=== PATIENT | female | born 1980 | race Caucasian/White ===

== ENCOUNTER 2024-12-29 11:14 | Outpatient (REF) | payer BC, SELFPAY ==
--- OUTSIDE RECORDS SUMMARY | 2024-05-04 09:30 | XMS_ITS ---
Author Organization [facility] Address [address] [address] Care Team Providers Care Head Of Insight Name Role Phone MIRACLE HASKINSYLA Unavailable [phone] REASON FOR VISIT NEW PATIENT..No PCP...left foot damaged toenail, left foot is swollen and from her vergara to her toesshe gets a numb, tingly sensation Encounters Encounter Location Date Provider Diagnosis [facility] [address] [facility] [address] [place] [address] 05/04/2024 TAMMY HASKINS Plan Of Treatment Next Appt Details Provider Name:TAMMY HASKINS, 01/23/2025 10:00:00 AM, [address] [address], [place], [address], Progress Notes * Ashley MELENDEZDOB: 0 (44 yo F)Acc No.[id number]:05/04/2024 Patient: Ashley RODRIGUES Provider: Tessa Slater DPAntolin :1980 A ge:43 Y S ex:Female Date:05/04/2024 Phone: Address:[address] [place] [phone] Subjective: * Chief Complaints: * 1 . NEW PATIENT..No PCP...left foot damaged toenail, left foot is swollen and from her vergara to her toes she gets a numb, tingly sensation. * Medical History: Objective: * Vitals: Assessment: Plan: * Treatment: * Billing Information: * Visit Code: * Procedure Codes: * Electronic signature of FREDDY HASKINS D.P.M. on 12/29/2024 at 01:39 PM EST Sign off status: Pending * Provider: Tessa Slater DPM Date: 0 05/04/2024 Generated for Shaina abreu/Doron/Kathrin on: 1 02/29/2024 01:39 PM EST
--- OUTSIDE RECORDS SUMMARY | 2024-10-06 09:45 | XMS_ITS ---
Author Organization [facility] Address [address] [address] Care Team Providers Care School Fundraising Director Name Role Phone TAMMY HASKINS Unavailable [phone] Allergies Allergen (clinical drug ingredient) Drug/Non Drug Allergy documented on EMR Reaction Allergy Type Onset Date Status fruits (uncoded) Unknown Allergy Act javi REASON FOR VISIT Previous THONE patient, c/o onset swelling and b/l toenail fungus. Medications Medication SIG (Take, Route, Frequency, Duration) Notes Start Date End Date Status Cholecalciferol Acti ve Cyanocobalamin Activ e Levonorgestrel 20 MCG/DAY as directed Intrauterine Active Cipro 500 MG 1 tablet Orally ever y 12 hrs Active Encounters Encounter Location Date Provider Diagnosis [facility] [address] [address] 10/06/2024 TAMMY HASKINS Plan Of Treatment Next Appt Details Provider Name:TAMMY HASKINS, 01/23/2025 10:00:00 AM, [address], [address], Progress Notes * Ashley MELENDEZDOB: 0 (44 yo F)Acc No.[id number]:10/06/2024 Patient: Ashley RODRIGUES Provider: Tessa Slater DPM :1980 A ge:44 Y S ex:Female Date:10/06/2024 Phone: Address:[address] [place] [phone] Subjective: * Chief Complaints: * 1 . Previous THONE patient, c/o onset swelling and b/l toenail fungus.. * Medical History: * Social History: t obacc: never alcohol: once a week. * Medications: T aking Levonorgestrel 20 MCG/DAY Intrauterine Device as directed Intrauterine , Taking Cholecalciferol , Taking Cyanocobalamin , Taking Cipro 500 MG Tablet 1 tablet Orally every 12 hrs * Allergies: f ruits: Allergy. Objective: * Vitals: Assessment: Plan: * Treatment: * Billing Information: * Visit Code: * Procedure Codes: * Electronic signature of Rosanne COSTELLOPMarkos on 12/29/2024 at 01:40 PM EST Sign off status: Pending * Provider: Tessa Slater DPM Date: 0 10/06/2024 Generated for Shaina abreu/Doron/Kathrin on: 1 02/29/2024 01:40 PM EST
[2024-12-29 13:18] LABS: MANUAL DIFF FLAG NO
--- OUTSIDE RECORDS SUMMARY | 2024-12-29 13:40 | XMS_ITS | Encounter Summary ---
Author Organization [facility] Address [address] [facility] [address] [place] [address] Phone Care Team Providers Care Beam Department Supervisor Name Role Phone Melva Epstein MD Primary Care Provid er Encounter Details Date Type Department Care Team (Late st Contact Info) Description 06/26/2022 Transcribe Orders [facility] [address] [place] [address] Bettina Melgar MD [address] [facility] [place] [address] [email or web address] Social History Tobacco Use Types Packs/Day Years Used Date Smoking Tobacco: Never Smokeless Tobacco: Never Alcohol Use Standard Drinks/Week Comments Yes 0 (1 standard drink = 0.6 oz pur e alcohol) 1-3 glasses of wine per wk Education Answer Date Recorded Are you interested in more education? Not on jeniffer e 06/19/2022 Are you concerned about learning? 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 Not on file N ot on file Not on file documented as of this encounter Plan of Treatment Upcoming Encounters Date Type Department Care Team (Late st Contact Info) Description 10/02/2024 Procedure Pass [address] [address] 01/22/2025 3:50 PM EST Office Visit [facility] [address] [place] [address] Rylee Culver MD [address] [place] [address] 05/22/2025 9:45 AM EDT Appointment [address] [address] Rylee Culver MD [address] [place] [address] [email or web address] documented as of this encounter Visit Diagnoses Not on filedocumented in this encounter Additional Health Concerns Infection Onset Date Last Indicated Resolved Time CoV-Risk 05/03/2024 05/03/2024 05/14/2024 1:21 AM EDT CoV-Risk 05/22/2024 05/22/2024 06/02/2024 1:23 AM EDT documented as of this encounter Care Teams Beam Department Supervisor Relationship Specialty Start Date End Date Melva Epstein MD [address] [address] PCP - General Internal Medicine 01/24/19 documented as of this encounter Additional Source Comments The information contained in this document represents components of the legal health record. It is not the complete legal health record.[facility]
--- OUTSIDE RECORDS SUMMARY | 2024-12-29 13:40 | XMS_ITS | Encounter Summary ---
Author Organization [facility] Address [address] [facility] [address] [place] [address] Phone Care Team Providers Care Filament Shaper Name Role Phone Melva Epstein MD Primary Care Provid er Encounter Details Date Type Department Care Team (Late st Contact Info) Description 09/04/2021 Procedure Pass [address] [address] Social History Tobacco Use Types Packs/Day Years Used Date Smoking Tobacco: Never Smokeless Tobacco: Never Alcohol Use Standard Drinks/Week Comments Yes 0 (1 standard drink = 0.6 oz pur e alcohol) 1-3 glasses of wine per wk Comments No Sex and Gender Information Value [...] st Contact Info) Description 10/02/2024 Procedure Pass [address] [address] 01/22/2025 3:50 PM EST Office Visit [facility] Midwifery [address] [place] [address] [place] [address] Rylee Culver MD [address] [facility], [address] [place] [address] [email or web address] 05/22/2025 9:45 AM EDT Appointment [address] [address] Rylee Culver MD [address] [facility] [address] [place] [address] [email or web address] documented as of this encounter Visit Diagnoses Not on filedocumented in this encounter Additional Health Concerns Infection Onset Date Last Indicated Resolved Time CoV-Risk 05/03/2024 05/03/2024 05/14/2024 1:21 AM EDT CoV-Risk 05/22/2024 05/22/2024 06/02/2024 1:23 AM EDT documented as of this encounter Care Teams Filament Shaper Relationship Specialty Start Date End Date [facility] [address] [address] PCP - General Internal Medicine 01/24/19 documented as of this encounter Additional Source Comments The information contained in this document represents components of the legal health record. It is not the complete legal health record.[facility]
--- OUTSIDE RECORDS SUMMARY | 2024-12-29 13:40 | XMS_ITS | Patient Health Record ---
Author Organization [facility] Address [address] [address] Care Team Providers Care Checkout Operator Name Role Phone DIVINE, TAMMY Unavailable [phone] Allergies No Known Allergies Reason For Referral No Information Medications Medication SIG (Take, Route, Frequency, Duration) Notes Start Date End Date Status Levonorgestrel 20 MCG/DAY as directed Intrauterine Not-Taking Cholecalciferol Not- Taking Cyanocobalamin Not-T aking Terbinafine HCl 250 MG 1 tablet Orally O nce a day; Duration: 90 days 11/02/2024 Active Cipro 500 MG 1 tablet Orally ever y 12 hrs Not-Taking Progesterone 200 MG 1 capsule at bedtime Orally Once a day Active Estradiol 0.025 MG/24HR 1 patch to skin Transdermal Two times a Week Active Vital Signs Heart Rate 84 /min 10/24/2024 Temperature 97.8 degrees Fahrenheit 10/24/2024 Respiratory Rate 16 /min 10/24/2024 Height 5ft 8in in 10/24/2024 Weight 163.6 lbs 10/24/2024 BMI 24.87 kg/m2 10/24/2024 Encounters Encounter Location Date Provider Diagnosis [facility] [address] 10/24/2024 TAMMY HASKINS Onychomycosis of toenail B35.1 [facility] [address] [address] 08/29/2024 TAMMY HASKINS [facility] [address] [address] 11/01/2024 TAMMY HASKINS [facility] [address] 11/02/2024 TAMMY HASKINS Assessments Encounter Date Diagnosis (ICD Code) Assessment Notes Treatment Notes Treatment Clinical Notes Section Notes 10/24/2024 Onychomycosis of toenail (ICD-10 - B35.1) Patient was seen and examined, history reviewed. Educated the patient on fungal toenail infections and the difficulty of treating them. Treatment options include topical medications and oral medications. Patient was educated that trauma to the nail bed can also cause a fungal like appearance to the nail, however there are no treatment option to normalize the nail plate in this instance. We also discussed how inflammatory issues, vitamin deficiencies, vascular issues and medications can change the nail plate as well. Patient understood. Advised patient that it can take 9-12 months for the toenail(s) to improve with treatment, and that recurrence is common. Oral medications were discussed. All risks of taking oral antifungals were reviewed which included liver toxicity and failure, along with GI upset, rash, headache/dizzines s, and unusual taste/loss of taste. Patient advised to watch for nausea, vomiting, abdominal pain, loose stools, and jaundice while on medication. If any symptoms do occur, patient should stop taking the medication immediately and contact the office. Baseline hepatic function tests are monitored when taking oral antifungal medications. Topical antifungals were discussed with the patient as well. Advised that these need to be used daily to the affected nails. They are less effective in eradicating the fungal infection than the oral medication, but have minimal side effects. This treatment should be done consistently over a 48 week period. Patient has had + fungual cultures proving onychomycosis in the past. She would like to go on oral treatment. I ordered LFTs for her to have done today before starting the 90 day oral terbinafine. Will see her back in 3 months and repeat labs in 6 weeks. Encouraged her to call with any questions or concerns. Plan Of Treatment Pending Test Test Name Order Date Hepatic Function Panel [id number] 2024 Hepatic Function Panel [id number] 2024 Next Appt Details Provider Name:TAMMY HASKINS, 01/23/2025 10:00:00 AM, [address], [address], Medical (General) History Medical History History ICD Code fibromyalgia perimenopause COVID vaccinated X 6 (Moderna) + COVID 2022 Surgical History Surgery Date(Month/Year) wisdom teeth extraction bilateral eye surgery (lazy eyes)
--- OUTSIDE RECORDS SUMMARY | 2024-12-29 13:40 | XMS_ITS ---
Author Name [facility] Organization Unknown Care Team Organization Name Specialty Phone Email Start Date End Da te [facility] ([facility])
--- OUTSIDE RECORDS SUMMARY | 2024-12-29 13:40 | XMS_ITS | Encounter Summary ---
Author Organization [facility] Address [address] [facility] [address] [place] [address] Phone Care Team Providers Care Endoscopy Technician Name Role Phone Melva Epstein MD Primary Care Provid er Encounter Details Date Type Department Care Team (Late st Contact Info) Description 08/27/2021 Procedure Pass [address] [address] Social History Tobacco Use Types Packs/Day Years [...] st Contact Info) Description 10/02/2024 Procedure Pass [address] [address] 01/22/2025 3:50 PM EST Office Visit [facility] & Midwifery [address] [place] [address] [place] [address] Rylee Culver MD [address] [facility], [address] [place] [address] 05/22/2025 9:45 AM EDT Appointment [address] [address] Rylee Culver MD [address] [facility] [address] [place] [address] [email or web address] documented as of this encounter Visit Diagnoses Not on filedocumented in this encounter Additional Health Concerns Infection Onset Date Last Indicated Resolved Time CoV-Risk 05/03/2024 05/03/2024 05/14/2024 1:21 AM EDT CoV-Risk 05/22/2024 05/22/2024 06/02/2024 1:23 AM EDT documented as of this encounter Care Teams Endoscopy Technician Relationship Specialty Start Date End Date [facility] Epstein [facility] [address] [address] PCP - General Internal Medicine 01/24/19 documented as of this encounter Additional Source Comments The information contained in this document represents components of the legal health record. It is not the complete legal health record.[facility]
--- OUTSIDE RECORDS SUMMARY | 2024-12-29 13:40 | XMS_ITS | Clinical Summary ---
Author Organization [facility] Address [address] [place] [address] Phone Care Team Providers Care Experience Specialist Name Role Phone Melva Epstein MD Primary Care Provid er Allergies Active Allergy Reactions Criticality Noted Date Comments Kiwi Swelling 02/01/2019 Latex 02/01/2019 Pineapple Swelling 02/01/2019 RIPE PINEAPPLE Medications ibuprofen (ADVIL,MOTRIN) 600 MG tablet Take 1 tablet (600 mg total) by mouth 3 (three) times a day for 3 days. Then tid prn pain/inflamm ation 30 tablet 06/13/2023 Active estradioL (VIVELLE-DOT) 0.025 mg/[address] 1 patch onto the skin 2 (two) times a week. 8 patch 2 10/02/2024 Active progesterone (PROMETRIUM) 100 mg capsule Take 1 capsule (100 mg total) by mouth daily. 30 capsule 2 10/02/2024 Active terbinafine HCL (LAMISIL) 250 mg tablet 11/02/2024 Active Hospital, Clinic, or Other Facility Administered Medication Ordered Dose Route Frequency Start Date End Date Status levonorgestrel (MIRENA) 20 mcg/24 hours (5 yrs) 52 mg intrauterine device 1 each 1 each Utrn Every 5 years 02/01/2019 Active Active Problems Problem Noted Date Diagnosed Date IUD (intrauterine device) in place 11/09/2024 Overview (11/09/2024): Mirena 2019 Assessment & Plan (11/09/2024 1:29 PM EDT): Reviewed that the Mirena is approved for up to 8 years when using for contraception. If using Mirena for progesterone opposition of estradiol, recommend use for up to 5 years. Recommend that she keep current Mirena in place while trying MHT. If she finds MHT beneficial, can consider IUD removal/replacement for continued contraception and the progesterone component of HT. Perimenopause 11/09/2024 Assessment & Plan (11/09/2024 1:31 PM EDT): Medication instructions for estradiol patch reviewed. Discussed possible side effects including skin irritation, breast tenderness, and vaginal bleeding. Potential benefits include treatment of hot flashes and mood swings. If no improvement after ~6 weeks, can trial increased dose of estradiol. If still no improvement, would rec discontinuation and consideration for other medical treatment options. All questions answered. Resolved Problems Problem Noted Date Diagnosed Date Resolved Date PCB (post coital bleeding) 06/26/2022 0 11/09/2024 Assessment & Plan (06/26/2022 2:07 PM EDT): Patient with 6 months history of post-coital bleeding Pap smear neg/neg 2021 Pelvic US done 2022 shows possible endometrial polyp, otherwise normal study, IUD properly placed Saline sonogram planned GC/CT negative 2022 Wet prep + yeast, negative clue cells, trichomonas Yeast noted on pap smear in 2021 Plan extended course of Diflucan for treatment of suspected chronic yeast infection Follow up in 8 weeks Left ovarian cyst 04/08/2022 11/09/2024 LLQ pain 03/19/2022 10/02/2024 Assessment & Plan (03/19/2022 8:21 PM EST): A: LLQ pain with sex or orgasm P: US ordered We discussed sometimes there is an ovarian cyst No mass on exam Encounter for routine checki ng of intrauterine contraceptive device 03/19/20222024 Assessment & Plan (03/19/2022 8:20 PM EST): A: IUD in place by exam Reassured P: OK to continue to be sexually active US ordered d/t LLQ pain with sex and orgasm Abnormal uterine bleeding 03/19/2022 Assessment & Plan (03/19/2022 8:21 PM EST): Has had some spotting UPT negative BV (bacterial vaginosis) 11/11/2021 Assessment & Plan (11/11/2021 12:16 PM EDT): Diagnosis confirmed on wet prep and KAMALA with strong whiff, small amount clue mariam;ls Diagnosis, treatment and generally good healthy vaginal Ramya reviewed Encounters Date Type Department Care Team Description 11/07/2024 12:00 PM EDT Telemedicine [facility] [address] [place] [address] [place] [address] Rylee Culver MD IUD (intrauterine device) in place (Primary Dx); Perimenopause 11/02/2024 11:52 AM EDT - 11/02/2024 11:59 PM EDT Hospital Encounter [facility] [address] [place] [address] Adali Jiang DPM Discharge Disposition: Home or Self Care 11/02/2024 Transcribe Orders [facility] [address] [place] [address] Adali Jiang DPM Onychomycosis of toenail (Primary Dx) 10/09/2024 1:53 PM EDT - 10/09/2024 11:59 PM EDT Hospital Encounter [facility] [address] [place] [address] Rylee Culver MD Discharge Disposition: Home or Self Care 10/03/2024 Telephone [facility] [address] [place] [address] [place] [address] Stefany clancy, Roslyn Bess LPN PA Request; Signed Visit Note Needed 10/02/2024 2:50 PM EDT Office Visit [facility] [address] [place] [address] [place] [address] Rylee Culver MD Perimenopause (Primary Dx); Screening cholesterol level; Breast cancer screening by mammogram from Last 3 Months Immunizations Immunization Administration Dates Next Due INFLUENZA, SPLIT VIRUS, TRIVALENT PF 02/27/2015 INFLUENZA, SPLIT VIRUS, TRIVALENT W/ PRESERVATIV E IM 11/20/2015 Influenza Quadrivalent Preservative Free IM 04/2018 Family History Medical History Relation Comments Skin cancer, basal cell Father Breast cancer Neg Hx Relation Status Comments Father Alive Mother Alive Social History Tobacco Use Types Packs/Day Years Used Date Smoking Tobacco: Never Smokeless Tobacco: Never Tobacco Cessation:Counseling Given: Not Answered Alcohol Use Standard Drinks/Week Comments Yes 0 (1 standard drink = 0.6 oz pur e alcohol) 1-3 glasses of wine per wk Education Answer Date Recorded Are you interested in more education? Not on jeniffer e 06/19/2022 Are you concerned about learning? Not on file 06/19/2022 No 06/19/2022 No 06/19/2022 Digital Access Answer Date Recorded No 07/17/2022 No 07/17/2022 Reliable internet access at home? Not on file 07/17/2022 Device with a working camera? 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 Not on file N ot on file Not on file Last Filed Vital Signs Vital Sign Reading Time Taken Comments Blood Pressure 145/88 05/22/2024 12:03 PM EDT Pulse 72 05/22/2024 12:03 PM EDT Temperature 36.9 C (98.4 F) 05/22/2024 12:03 PM EDT Respiratory Rate 16 05/22/2024 12:03 PM EDT Oxygen Saturation 100% 05/22/2024 12:03 PM EDT Inhaled Oxygen Concentration - - Weight 73.5 kg (162 lb) 10/02/2024 2:50 PM EDT Height 170.2 cm (5' 7 ) 05/22/2024 12:03 PM EDT Body Mass Index 25.37 05/22/2024 12:03 PM EDT Plan of Treatment Upcoming Encounters Date Type Department Care Team (Late st Contact Info) Description 10/02/2024 Procedure Pass [address] [address] 01/22/2025 3:50 PM EST Office Visit [facility] [address] [place] [address] Rylee Culver MD [address] [place] [address] [email or web address] 05/22/2025 9:45 AM EDT Appointment [address] [address] Rylee Culver MD [address] [place] [address] [email or web address] Health Maintenance Due Date Last Done Comments Adult Td,Tdap Booster 1980 DEPRESSION SCREENING 1991 HEPATITIS C SCREENING 06/20/1997 HIV ONE-TIME SCREENING (18-6 5 YEARS) 06/20/1997 SCREENING FOR DIABETES 06/20/2014 MAMMOGRAM 09/05/2023 09/04/2021, 07/19/2020 PAP SMEAR 05/05/2024 05/05/2021, 07/17/2015, 07/11/2015 COLOGUARD 06/20/2024 COLONOSCOPY 06/20/2024 COLORECTAL CANCER SCREENING 06/20/2024 FIT TEST 06/20/2024 FOBT 06/20/2024 SIGMOIDOSCOPY 06/20/2024 VIRTUAL COLONOSCOPY 06/20/2024 INFLUENZA VACCINE (#1) 2024 9, 11/20/2015, 02/27/2015 COVID-19 VACCINE (1 - 2024-2 6 season) 2024 IUD 02/01/2027 02/01/2019 LIPID PANEL 10/09/2029 10/09/2024 SMOKING STATUS SCREENING (On ce After 26 Yrs) Completed 05/03/2024 HEPATITIS A VACCINES Aged Out No long er eligible based on patient's age to complete this topic HIB VACCINES Aged Out No longer eligi ble based on patient's age to complete this topic MENINGOCOCCAL VACCINES (ACWY) Aged Out No longer eligible based on patient's age to complete this topic MENINGOCOCCAL VACCINES (B) Aged Out N o longer eligible based on patient's age to complete this topic PNEUMOCOCCAL VACCINES (0-49 years) Aged Out No longer eligible b ased on patient's age to complete this topic Medical Devices Not on file Procedures Procedure Name Priority Date/Time Associated Diagnosis Comments LFTS (HEPATIC PANEL) Routine 11/02/2024 12:23 PM EDT Onychomycosis of toenail LIPID PANEL Routine 10/09/2024 2:24 PM EDT Screening cholesterol level FSH Routine 10/09/2024 2:24 PM EDT Perimenopause BI MAMMOGRAM SCREENING WITH TOMOSYNTHESIS WITH CAD (BILATERAL) Routine 09/04/2021 9:04 AM EDT Breast screening PAP TEST Routine 05/05/2021 12:00 AM EDT from Last 3 Months or Most Recently Relevant to Health Maintenance Results * LFTs (hepatic panel) (11/02/2024 12:23 PM EDT) ALKALINE PHOSPHATASE 43 39 - 117 U/L [facility] TOTAL BILIRUBIN 0.5 0.0 - 1.2 mg/dL [facility] DIRECT BILIRUBIN 0.1 0.0 - 0.2 mg/dL [facility] Bilirubin (Indirect) NOT CALCULATED 0 - 1.5 mg/dL [facility] AST 27 0 - 37 U/L [facility] ALT 13 0 - 40 U/L [facility] TOTAL PROTEIN 6.6 6.5 - 8.0 g/dL [facility] ALBUMIN 4.1 3.9 - 4.8 g/dL [facility] GLOBULIN 2.5 1 - 4.8 g/dL [facility] A/G Ratio 1.64 1.00 - 4.80 RATIO [facility] Blood 11/02/2024 12:2 3 PM EDT 11/02/2024 12:30 PM EDT Adali Jiang DPM LAB BLOOD BKR ORDERABLES Final Result Performing Organization Address [facility]/ZIP Co de Phone Number [address] [address] * FSH (10/09/2024 2:24 PM EDT) FSH 17.8 IU/L [facility] Comment: FEMALE: Follicular: 3.5 - 12.5 mIU/ml. Ovulate: 4.7 - 21.5 mIU/ml. Luteal: 1.7 - 7.7 mIU/ml. Postmenopausal: 25.8 - 134.8 mIU/ml. Blood 10/09/2024 2:24 PM EDT 10/09/2024 2:28 PM EDT Rylee Culver MD LAB BLOOD BKR ORDERABLES Mee l Result Performing Organization Address [facility] Co de Phone Number [address] [address] * (ABNORMAL) Lipid panel (10/09/2024 2:24 PM EDT) HDL 76 mg/dL [facility] Comment: Interpretation <40 mg/dL: Low HDL cholesterol (major risk factor for CHD) Greater than or equal to 60 mg/dL: High HDL cholesterol ( negative risk factor for CHD) HDL - cholesterol is affected by a number of factors, e.g. smoking, excerise, hormones, sex and age. CHOLESTEROL 218 0 - 240 mg/dL [facility] TRIGLYCERIDES 59 30 - 160 mg/dL [facility] LDL 130(H) 50 - 129 mg/dL [facility] Comment: LDL levels in terms of risk for coronary heart disease: <100 mg/dL: Optimal 100-129 mg/dL: Near or above optimal 130-159 mg/dL: Borderline high 160-189 mg/dL: High >190 mg/dL: Very High CARDIAC RISK RATIO 2.9(L) 3.3 - 4.4 [facility] Blood 10/09/2024 2:24 PM EDT 10/09/2024 2:28 PM EDT us Rylee Culver MD LAB BLOOD BKR ORDERABLES Mee l Result [address] [address] * (ABNORMAL) BI MAMMOGRAM SCREENING WITH TOMOSYNTHESIS WITH CAD (BILATERAL) (09/04/2021 9:04 AM EDT) Anatomical Region Laterality Modality Breast Left, Breast Right, Breast Bilateral Bila teral Mammography 09/04/2021 9:08 AM EDT Impressions 09/04/2021 9:44 AM EDT Recommend recalling the patient for a left breast asymmetry. Radiology department will attempt to recall the patient. Recall views: Spot compression left cc view. Left ML view. Ultrasound if necessary. BI-RADS CATEGORY: 0 - Incomplete. Need additional imaging evaluation. DENSITY: The breast tissue is heterogeneously dense, which could obscure a lesion on mammography. LEFT RECOMMENDATION DUE DATE: 1 month. Left Additional Imaging RIGHT RECOMMENDATION DUE DATE: on schedule Right Mammography Screening Narrative 09/04/2021 9:44 AM EDT 41-year-old female. Comparison made to previous on 07/19/2020. Interpretation made in conjunction with computer-aided detection and tomosynthesis. The breasts are heterogeneously dense, which may obscure small masses. New nodular asymmetry in the posterior slightly lateral left breast 8 cm from the nipple on the cc view only. There are no suspicious masses, areas of architectural distortion, or suspicious clusters of microcalcifications. Procedure Note Den Valera MD - 09/04/2021 41-year-old female. Comparison made to previous on 07/19/2020.Interpretation made in conjunction with computer-aided detection andtomosynthesis. The breasts are heterogeneously dense, which may obscure small masses. Newnodular asymmetry in the posterior slightly lateral left breast 8 cm fromthe nipple on the cc view only. There are no suspicious masses, areas of architectural distortion, orsuspicious clusters of microcalcifications. IMPRESSION: Recommend recalling the patient for a left breast asymmetry. Radiologydepartment will attempt to recall the patient. Recall views: Spot compression left cc view. Left ML view. Ultrasound ifnecessary. BI-RADS CATEGORY: 0 - Incomplete. Need additional imaging evaluation. DENSITY: The breast tissue is heterogeneously dense, which could obscurea lesion on mammography. LEFT RECOMMENDATION DUE DATE: 1 month. Left Additional Imaging RIGHT RECOMMENDATION DUE DATE: on schedule Right Mammography Screening Melva Epstein MD IMG MG EXAMS Mee l Result * Pap Smear (05/05/2021 12:00 AM EDT) 05/05/2021 05/06/2021 9:1 3 AM EDT Narrative SEE NARRATIVE - 05/09/2021 11:46 AM EDT [address] [address] Poly Operator: Marichuy Broderick MD PIERCER OPERATOR Cytology Report FINAL DIAGNOSIS A. PAP SMEAR (SUREPATH) CE: SPECIMEN ADEQUACY: Satisfactory for evaluation; transformation zone present. INTERPRETATION: NEGATIVE FOR INTRAEPITHELIAL LESION OR MALIGNANCY. Fungal organisms morphologically consistent with Kylie species. Electronically Signed Out By: TED Valladares(ASCP) The Pap test is a screening test primarily for squamous cancers and precursors and has associated false-negative and false-positive results. New technologies such as liquid-based preparations may decrease but will not eliminate all false-negative results. Regular sampling and follow-up of unexplained clinical signs and symptoms are recommended to minimize false negative results. PROCEDURES/ADDENDA HPV Testing (Requested) Ordered Date: 05/06/2021 A. PAP SMEAR (SUREPATH) CE: Human Papilloma Virus Test Negative for high-risk human papillomavirus types 16, 18, 45 and the Other high risk probe set (Includes 31, 33, 35, 39, 51, 52, 56, 58, 59, 66, 68) by Johnny [employer] Onclarity HR-HPV analysis. Clinical correlation is advised. This HPV test was performed at [facility], [address] [place] [address]. This test has been FDA approved for SurePath cervical cytology specimens. The accuracy and precision of this test for all other specimen sources has been verified in the Cytopathology Laboratory of the [facility] and has not been cleared or approved by the U.S. Food and Drug Administration. Clinical correlation is advised. CLINICAL HISTORY Date of Last Menstrual Period: Not Provided Menstrual History: Unknown Contraceptive History: IUD Other Clinical Conditions: Screening Pap SPECIMEN SOURCE A: PAP SMEAR (SUREPATH) CE Patient Name: LUCRECIA MELENDEZ : 1980 (Age: 40) Sex: F Institution: [facility] Location: [facility] Date of Collection: 05/05/2021 Date of Reported: 05/09/2021 11:46 Results to: Christi Coombs MSN, BS Christi Coombs EMERGENCY MEDICAL SERVICE COORDINATOR CYTOLOGY ORDERABLES Final Resu lt SEE NARRATIVE from Last 3 Months or Most Recently Relevant to Health Maintenance Insurance [facility] [employer] [place] [address] [address] Member Subscriber Plan / Payer (Ef fective 2010-Present) Name:Lucrecia Melendez Relation to Subscriber:Self Name:Lucrecia Melendez Payer ID:[id number] ([facility]) Group ID:[id number] Type:PPO Address: [address] HEALTH PLAN Member Subscriber Plan / Payer (Ef fective 2010-Present) Name:Lucrecia Melendez Relation to Subscriber:Self Name:Lucrecia Melendez Payer ID:[id number] ([facility]) Group ID:[id number] Type:PPO Address: [address] [place] [address] [address] [place] [address] [place] [address] [place] [address] Member Subscriber Plan / Payer (Ef fective 2010-Present) Name:Lucrecia Melendez Relation to Subscriber:Self Name:Lucrecia Melendez Payer ID:[id number] ([facility]) Group ID:[id number] Type:PPO Address: [id number] HEALTH PLAN Subscriber Plan / Payer (Ef fective 2010-Present) Name:Eduardo Melendezher Relation to Subscriber:Self Name:JakeLucrecia boston Payer ID:[id number] ([facility]) Group ID:[id number] Type:PPO Address: [facility] [id number] PLAN [facility] PLAN Care Teams Experience Specialist Relationship Specialty Start Date End Date Melva Epstein MD [address] [address] PCP - General Internal Medicine 01/24/19 Additional Source Comments The information contained in this document represents components of the legal health record. It is not the complete legal health record.[facility]
--- OUTSIDE RECORDS SUMMARY | 2024-12-29 13:40 | XMS_ITS | Encounter Summary ---
Author Organization [facility] Address [address] [facility] [address] [place] [address] Phone Care Team Providers Care Equal Employment Opportunity Officer Name Role Phone Melva Epstein MD Primary Care Provid er Encounter Details Date Type Department Care Team (Late st Contact Info) Description 05/03/2020 Procedure Pass [address] [address] Social History Tobacco Use Types Packs/Day Years [...] st Contact Info) Description 10/02/2024 Procedure Pass [address] [address] 01/22/2025 3:50 PM EST Office Visit [facility] [address] [place] [address] [place] [address] Rylee Culver MD [address] [facility], [address] [place] [address] [email or web address] 05/22/2025 9:45 AM EDT Appointment [address] [address] Rylee Culver MD 22 [facility] [address] [place] [address] [email or web address] documented as of this encounter Visit Diagnoses Not on filedocumented in this encounter Additional Health Concerns Infection Onset Date Last Indicated Resolved Time CoV-Risk 05/03/2024 05/03/2024 05/14/2024 1:21 AM EDT CoV-Risk 05/22/2024 05/22/2024 06/02/2024 1:23 AM EDT documented as of this encounter Care Teams Equal Employment Opportunity Officer Relationship Specialty Start Date End Date [facility] [address] [address] PCP - General Internal Medicine 01/24/19 documented as of this encounter Additional Source Comments The information contained in this document represents components of the legal health record. It is not the complete legal health record.[facility]
--- OUTSIDE RECORDS SUMMARY | 2024-12-29 13:40 | XMS_ITS | Encounter Summary ---
Author Organization [facility] Address [address] [place] [address] Phone Care Team Providers Care Medical Receptionist Assistant Name Role Phone Melva Epstein MD Primary Care Provid er Encounter Details Date Type Department Care Team (Late st Contact Info) Description 05/03/2020 Transcribe Orders Virtual Department [address] [place] [address] Melva Epstein MD [address] [address] Breast screening (Primary Dx) Social History Tobacco Use Types Packs/Day Years [...] st Contact Info) Description 10/02/2024 Procedure Pass [facility] [address] [place] [address] 01/22/2025 3:50 PM EST Office Visit [facility] Midwifery [address] [place] [address] [place] [address] Rylee Culver MD 22 [facility], [address] [place] [address] 05/22/2025 9:45 AM EDT Appointment [facility], [address] [address] Rylee Culver MD 22 [facility], [address] [place] [address] [email or web address] documented as of this encounter Results * BI MAMMOGRAM SCREENING WITH TOMOSYNTHESIS WITH CAD (BILATERAL) (07/19/2020 2:02 PM EDT) Anatomical Region Laterality Modality Breast Left, Breast Right, Breast Bilateral Bila teral Mammography 07/21/2020 4:01 PM EDT Impressions 07/21/2020 4:02 PM EDT BILATERAL BREASTS: Negative, no evidence of malignancy. Normal interval follow- up is recommended in 12 months. Bi-RADS: BI-RADS CATEGORY: 1 - Negative. DENSITY: The breast tissue is heterogeneously dense, which could obscure a lesion on mammography. Narrative 07/21/2020 4:02 PM EDT STUDY: Bilateral screening mammography with tomosynthesis and CAD TECHNIQUE: Bilateral full-field digital screening mammography is obtained and read in conjunction with computer-aided detection. Tomosynthesis as well as 2-D C view imaging were obtained. COMPARISON: None. This is a baseline study. BREAST COMPOSITION: The breast tissue is heterogeneously dense, which may obscure small masses. BILATERAL BREASTS: No significant masses, suspicious calcifications or other abnormalities are seen. Procedure Note Marivel Abreu MD - 07/21/2020 STUDY: Bilateral screening mammography with tomosynthesis and CAD TECHNIQUE: Bilateral full-field digital screening mammography is obtainedand read in conjunction with computer-aided detection. Tomosynthesis aswell as 2-D C view imaging were obtained. COMPARISON: None. This is a baseline study. BREAST COMPOSITION: The breast tissue is heterogeneously dense, which mayobscure small masses. BILATERAL BREASTS: No significant masses, suspicious calcifications orother abnormalities are seen. IMPRESSION: BILATERAL BREASTS: Negative, no evidence of malignancy. Normal intervalfollow-up is recommended in 12 months. Bi-RADS: BI-RADS CATEGORY: 1 - Negative. DENSITY: The breast tissue is heterogeneously dense, which could obscurea lesion on mammography. Melva Epstein MD IMG MG EXAMS Mee l Result documented in this encounter Visit Diagnoses Diagnosis Breast screening- Primary Breast screening, unspecified documented in this encounter Additional Health Concerns Infection Onset Date Last Indicated Resolved Time CoV-Risk 05/03/2024 05/03/2024 05/14/2024 1:21 AM EDT CoV-Risk 05/22/2024 05/22/2024 06/02/2024 1:23 AM EDT documented as of this encounter Care Teams Medical Receptionist Assistant Relationship Specialty Start Date End Date [facility] [address] [address] PCP - General Internal Medicine 01/24/19 documented as of this encounter Additional Source Comments The information contained in this document represents components of the legal health record. It is not the complete legal health record.[facility]
[2024-12-29 13:51] LABS: Hematocrit 35.9 % (37.0-47.0); Hemoglobin 11.8 g/dl (12.0-16.0); Imm Gran Abs Auto 0.02 X10*3/uL (0.00-0.03); Imm Gran Pct Auto 0.4 % (0.0-0.4); Lymphocytes Absolute Auto 1.8 X10*3/uL (1.2-4.9); Mean Corpuscular HGB Conc 32.9 g/dl (31.0-35.0); Mean Corpuscular Hemoglobin 32.1 pg (27.0-33.0); Mean Corpuscular Volume 97.6 fL (80.0-98.0); NRBC Abs Auto 0.000 X10*3/uL (0.0-0.012); NRBC Pct Auto 0.0 /100WBC (0.0-0.2); Platelet Count 207 X10*3/uL (160-400); Red Blood Count 3.68 X10*6/uL (4.20-5.50); White Blood Count 4.9 X10*3/uL (4.8-10.8)
[2024-12-29 13:57] LABS: Alanine Aminotransferase 18 U/L (0-31); Albumin Level 4.5 g/dL (3.5-5.0); Alkaline Phosphatase 42 U/L (39-117); Anion Gap 12 (12-20); Aspartate Amino Transferase 26 U/L (5-31); Blood Urea Nitrogen 20 mg/dL (9-16); Calcium 9.1 mg/dL (8.4-10.2); Carbon Dioxide 25 mmol/L (22-29); Chloride 107 mmol/L (96-108); Cholesterol 238 mg/dL (<200); Estimated Glomerular Filt Rate > 60; HDL Cholesterol 74 mg/dL (>40); Potassium 4.1 mmol/L (3.3-5.1); Sodium 140 mmol/L (135-145); Total Protein 7.0 g/dL (6.5-8.0); Triglycerides 40 mg/dL (<150)
== END 2024-12-29 11:15 | disposition home or self-care (01) ==
LOC: HO.MANLDS 11:14
PROVIDERS: Visit Provider Internal Medicine
DX: Z13.6 Encounter for screening for cardiovascular disorders (principal); Z82.49 Family history of ischemic heart disease and other diseases of the circulatory system
CPT/HCPCS: 36415; 80053; 80061; 82306; 85025